=== PATIENT | male | born 1950 | race Caucasian/White ===

== ENCOUNTER 2020-09-07 03:31 | Emergency (ER) | payer OTHER ==
[~2020-09-07] VITALS: Ht 172.7 cm; Wt 72.6 kg
[2020-09-07] MEDS ORDERED: TRAMADOL HCL 50 MG TAB PO ONE (03:45)
[2020-09-07] MEDS ORDERED: TRAMADOL HCL 50 MG TAB ONE (03:46)
[2020-09-07] MEDS ORDERED: ULTRAM50 MG PO (04:01)
== END 2020-09-07 04:42 | disposition home or self-care (01) ==
LOC: ER 03:34
DX: R07.89 Other chest pain (principal); S20.212A Contusion of left front wall of thorax, initial encounter; W18.30XA Fall on same level, unspecified, initial encounter; F17.210 Nicotine dependence, cigarettes, uncomplicated
CPT/HCPCS: 71101; 99282